=== PATIENT | male | born 1950 | race Caucasian/White ===

== ENCOUNTER → 2019-04-15 | Outpatient (CLI) | payer MEDICARE, OTHER ==
[2016-07-31 17:16] VITALS: BMI 34.1
[~2019-04-15] MED LIST: AMLO-125 PO; ASPI-1471 PO; ASPI-764 PO; ATOR10TA24 PO; BENA20TA64 PO; CYCL10TA29 PO; GABA-549 PO; LEVO200T50 PO; METF-450 PO; METO25TA23 PO; OXYC-869 PO; OXYC80TA PO; PROM-110 PO; TEST100V6 IM; ZOLP-358 PO
== END ==
LOC: RESP 21:12
PROVIDERS: ATTEND Family Medicine
DX: G47.37 Central sleep apnea in conditions classified elsewhere (principal); G47.33 Obstructive sleep apnea (adult) (pediatric); G47.36 Sleep related hypoventilation in conditions classified elsewhere